=== PATIENT | female | born 1975 | race Caucasian/White ===

== ENCOUNTER 2016-07-20 19:13 | Outpatient (CLI) | payer OTHER ==
[~2016-07-20] VITALS: Ht 175.3 cm; Wt 75.7 kg
[~2016-07-20 19:13] MED LIST: PROMETHAZINE HC25 M1 PO
[2016-07-20 19:38] VITALS: BP 114/60
== END 2016-07-20 20:45 | disposition home or self-care (01) ==
LOC: LDRP-OP 19:13 → 2WEST 19:14 → LDRP-OP 12-01 16:24
DX: O99.89 Other specified diseases and conditions complicating pregnancy, childbirth and the puerperium (principal); M54.89 Other dorsalgia; Z3A.24 24 weeks gestation of pregnancy; O30.032 Twin pregnancy, monochorionic/diamniotic, second trimester; O09.522 Supervision of elderly multigravida, second trimester
CPT/HCPCS: 59025; G0378